=== PATIENT | female | born 1960 | race Two or more races ===

== ENCOUNTER 2021-03-18 06:27 | Day surgery (SDC) | payer OTHER ==
[~2021-03-18 06:27] MED LIST: COZAAR25 MG PO; NP THYROID30 MG PO
== END 2021-03-18 17:40 | disposition home or self-care (01) ==
LOC: CIR.AMB 06:27
PROVIDERS: ATTEND Surgery
DX: D05.01 Lobular carcinoma in situ of right breast (principal); D05.11 Intraductal carcinoma in situ of right breast; Z90.13 Acquired absence of bilateral breasts and nipples; Z20.822 Contact with and (suspected) exposure to COVID-19